=== PATIENT | female | born 1995 | race African-American/Black ===

== ENCOUNTER 2018-10-03 21:03 | Emergency (ER) | payer SELFPAY ==
[~2018-10-03] VITALS: Ht 162.6 cm; Wt 106.6 kg
--- OUTSIDE RECORDS SUMMARY | 2018-10-03 21:09 | XMS REPORT ---
Author Author RONI GALEAS Organization [facility] Address [address] [place] [address] Care Team Providers Care Leather Coater Name Role Phone RONI GALEAS Unavailable PROBLEMS Type Condition ICD9-CM Code LIE55-HG Code Onset Dates Condition Status SNOMED Code Problem Morbid obesity E66.01 Active 711742786 Problem Mild intermittent asthma with exacerbation J45.21 Active 276511544 ALLERGIES No Information ENCOUNTERS Encounter Location Date Diagnosis [place] [id number] [place] [address] [phone]- [phone] Sep, [facility] [address] [phone] Sep, [facility] [id number] [place] [address]4314- 2833 Sep, [facility] [address] [address] Sep, Exercise counseling Z71.82 [facility] [id number] [place] [address] 69736- 5561 Sep, Exercise counseling Z71.82 [facility] [id number] [place] [address] 66765- [phone] 16 Sep, 2018 Exercise counseling Z71.82 [facility] [id number] [place] [address] 84909- 9044 Sep, Exercise counseling Z71.82 [place] [id number] [place] [address] 55691- 9579 Sep, Exercise counseling Z71.82 [facility] [id number] [place] [address] 06044- 9369 23 Oct, 2018 Mild intermittent asthma with exacerbation J45.21 ; Morbid obesity E66.01 and BMI 45.0-49.9, adult Z68.42 IMMUNIZATIONS No Known Immunizations SOCIAL HISTORY Never Assessed REASON FOR VISIT weight loss PLAN OF CARE Activity Details Follow Up 1 Week Reason: VITAL SIGNS MEDICATIONS Unknown Medications RESULTS No Results PROCEDURES No Known procedures INSTRUCTIONS MEDICATIONS ADMINISTERED No Known Medications MEDICAL (GENERAL) HISTORY Type Description Date Medical History asthma Surgical History No Surgical history information
--- OUTSIDE RECORDS SUMMARY | 2018-10-03 21:09 | XMS REPORT ---
Author Author RONI GALEAS Organization [facility] Address [address] [place] [address] Care Team Providers Care Flight Simulator Teacher Name Role Phone RONI GALEAS Unavailable PROBLEMS Type Condition ICD9-CM Code LXC45-DR Code Onset Dates Condition Status SNOMED Code Problem Morbid obesity E66.01 Active 111577521 Problem Mild intermittent asthma with exacerbation J45.21 Active 967893475 ALLERGIES No Information ENCOUNTERS Encounter Location Date Diagnosis [place] [id number] [place] [phone]- [phone] Sep, [place] [address] [place] [id number] [place] [address] 95085- [phone] 16 Sep, 2018 [place] [id number] [place] [address] 48538- [phone] Sep, [place] [address] [id number] [place] [address] 63696- 1479 Sep, Exercise counseling Z71.82 [place] [address] [place] [address] 15009- 9152 Sep, Exercise counseling Z71.82 [place] [address] [place] [address] [phone]- 9697 Aug, Mild intermittent asthma with exacerbation J45.21 ; [...]
--- OUTSIDE RECORDS SUMMARY | 2018-10-03 21:09 | XMS REPORT ---
Author Author RONI GALEAS Organization [facility] Address [address] [place] [address] Care Team Providers Care Cable Wirer Name Role Phone RONI GALEAS Unavailable PROBLEMS Type Condition ICD9-CM Code ZZV27-YJ Code Onset Dates Condition Status SNOMED Code Problem Morbid obesity E66.01 Active 302469185 Problem Mild intermittent asthma with exacerbation J45.21 Active 806077252 ALLERGIES No Known Allergies ENCOUNTERS Encounter Location Date Diagnosis [facility] [id number] [address] Aug, [facility] [address] [place] [address] 63984- 2423 Aug, Mild intermittent asthma with exacerbation J45.21 ; Morbid obesity E66.01 and BMI 45.0-49.9, adult Z68.42 IMMUNIZATIONS No Known Immunizations SOCIAL HISTORY Never Assessed REASON FOR VISIT cough/congestion x1week with production with thick brown KPage MA , short of breath at rest and when active KPage mA 94% on room air KPage MA PLAN OF CARE Activity Details Follow Up prn Reason: VITAL SIGNS Height 5'4 in 2018-08-25 Weight 234 lbs 2018-08-25 Temperature 98.1 degrees Fahrenheit 2018-08-25 Heart Rate 75 bpm 2018-08-25 Respiratory Rate 20 2018-08-25 BMI 45.70 kg/m2 2018-08-25 Blood pressure systolic 118 mmHg 2018-08-25 Blood pressure diastolic 74 mmHg 2018-08-25 MEDICATIONS Medication Instructions Dosage Frequency Start Date End Date Duration Status PredniSONE 20 mg Orally Once a day 2 tablets 24h Aug, Aug, 5 days Active Promethazine-Codeine 6.25-10 MG/5ML Orally 4every 6 hrs 10 ml as needed Aug, Active RESULTS No Results PROCEDURES No Known procedures INSTRUCTIONS MEDICATIONS ADMINISTERED No Known Medications MEDICAL (GENERAL) HISTORY Type Description Date Medical History asthma Surgical History No Surgical history information
--- OUTSIDE RECORDS SUMMARY | 2018-10-03 21:09 | XMS REPORT ---
Author Author YULIET LAMB [facility] Address [address] [place] [address] Care Team Providers Care Chassis Mechanic Name Role Phone YULIET LAMB Unavailable PROBLEMS Type Condition ICD9-CM Code HWD17-DB Code Onset Dates Condition Status SNOMED Code Problem Morbid obesity E66.01 Active 104414031 Problem Mild intermittent asthma with exacerbation J45.21 Active 468530809 ALLERGIES No Known Allergies ENCOUNTERS Encounter Location Date Diagnosis [place] [id number] [place] [address] 11203- [phone] 30 Sep, 2018 [place] [id number] [place] [address] 90366- 2638 Sep, [place] [id number] [place] [address] 51334- 6985 23 Sep, 2018 Well woman exam Z01.419 ; Screening for cervical cancer Z12.4 ; Screening examination for sexually transmitted disease Z11.3 ; Encounter for immunization Z23 and BMI 45.0-49.9, adult Z68.42 [place] [id number] [place] [address] 08108- 5395 Sep, Exercise counseling Z71.82 [place] [id number] [place] [address] 77215- 6969 Sep, Exercise counseling Z71.82 [place] [id number] [place] [address] 50594- 3555 16 Sep, 2018 Exercise counseling Z71.82 [place] [id number] [place] [address] 41178- [phone] 09 Sep, 2018 Exercise counseling Z71.82 [place] [id number] [place] [address] 41325- 2186 Sep, Exercise counseling Z71.82 [facility] [address] [facility] [id number] [place] [address] Aug, Mild intermittent asthma with exacerbation J45.21 ; Morbid obesity E66.01 and BMI 45.0-49.9, adult Z68.42 IMMUNIZATIONS Vaccine Route Administration Date Status GARDASIL 9 IM Intramuscular Sep 25, 2018 Administered SOCIAL HISTORY Never Assessed REASON FOR VISIT Well Woman Exam Trevon Swartz PLAN OF CARE Activity Details Follow Up 1 Year Reason:WWE Pending Test GC/CHLAM PROBE (STATE) Pending Test PAP REFLEX TO HPV IF ASCUS VITAL SIGNS Height 5'4 in 2018-09-25 Weight 235.2 lbs 2018-09-25 Temperature 98.2 degrees Fahrenheit 2018-09-25 Heart Rate 71 bpm 2018-09-25 Respiratory Rate 20 2018-09-25 BMI 45.93 kg/m2 2018-09-25 Blood pressure systolic 124 mmHg 2018-09-25 Blood pressure diastolic 82 mmHg 2018-09-25 MEDICATIONS Unknown Medications RESULTS Name Result Date Reference Range TEST, URINE (IN HOUSE) 2018-09-25 RESULTS negative Lot # [id number] Control + Exp date 03/22 TRICHOMONAS (IN HOUSE) 2018-09-25 TRICHOMONAS negative Control + Lot # [id number] Exp date 09/2019 PROCEDURES Procedure Date Ordered Result Body Site URINE TEST Sep 25, 2018 SPECIMEN HANDLING Sep 25, 2018 TRICHOMONAS ASSAY W/OPTIC Sep 25, 2018 No Charge Sep 25, 2018 SINGLE IMMUNIZATION ADMIN Sep 25, 2018 GARDISIL 9 Sep 25, 2018 INSTRUCTIONS MEDICATIONS ADMINISTERED No Known Medications MEDICAL (GENERAL) HISTORY Type Description Date Medical History asthma Surgical History No Surgical history information
--- OUTSIDE RECORDS SUMMARY | 2018-10-03 21:09 | XMS REPORT ---
Author Author RONI GALEAS Organization [facility] Address [address] [place] [address] Care Team Providers Care Iron Assorter Name Role Phone RONI GALEAS Unavailable PROBLEMS Type Condition ICD9-CM Code WFP90-CK Code Onset Dates Condition Status SNOMED Code Problem Morbid obesity E66.01 Active 444776081 Problem Mild intermittent asthma with exacerbation J45.21 Active 482571198 ALLERGIES No Information ENCOUNTERS Encounter Location Date Diagnosis [place] [address] [place] [address] [phone]- [phone] Sep, [place] [id number] [place] [address] 81884- [phone] Sep, [facility] [address] [place] [address] 23394- 8166 Sep, Exercise counseling Z71.82 [place] [id number] [place] [address] 44699- [phone] Aug, Mild intermittent asthma with exacerbation J45.21 ; Morbid obesity E66.01 and BMI 45.0-49.9, adult Z68.42 IMMUNIZATIONS No Known Immunizations SOCIAL HISTORY Never Assessed REASON FOR VISIT weight loss program PLAN OF CARE Activity Details Follow Up 2 - 3 Days Reason: VITAL SIGNS MEDICATIONS Unknown Medications RESULTS No Results PROCEDURES No Known procedures INSTRUCTIONS MEDICATIONS ADMINISTERED No Known Medications MEDICAL (GENERAL) HISTORY Type Description Date Medical History asthma Surgical History No Surgical history information
[2018-10-03] MEDS ORDERED: LACTATED RINGERS 1,000 ML IV ONE (22:37)
[2018-10-03 22:42] LABS: BASOPHILS # (AUTO) 0.1 10^3/uL (0.0-0.1); BASOPHILS % (AUTO) 1 % (0-10); EOSINOPHILS # (AUTO) 0.2 10^3/uL (0.0-0.3); EOSINOPHILS % (AUTO) 2 % (0-10); HEMATOCRIT 36 % (35-52); HEMOGLOBIN 12.3 G/DL (11.5-16.0); LYMPHOCYTES % (AUTO) 20 % (12-44); MEAN CORPUSCULAR HEMOGLOBIN 28 PG (25-34); MEAN CORPUSCULAR HGB CONC 34 G/DL (32-36); MEAN CORPUSCULAR VOLUME 81 FL (80-99); MEAN PLATELET VOLUME 11.1 FL (7.4-10.4); MONOCYTES # (AUTO) 0.7 X 10^3 (0.0-1.0); MONOCYTES % (AUTO) 7 % (0-12); NEUTROPHILS # (AUTO) 7.2 X 10^3 (1.8-7.8); NEUTROPHILS % (AUTO) 71 % (42-75); PLATELET COUNT 210 10^3/uL (130-400); RED BLOOD COUNT 4.46 10^6/uL (4.35-5.85); RED CELL DISTRIBUTION WIDTH 12.8 % (10.0-14.5); WHITE BLOOD COUNT 10.1 10^3/uL (4.3-11.0)
[2018-10-03 23:01] LABS: ALANINE AMINOTRANSFERASE 20 U/L (0-55); ALBUMIN 4.1 GM/DL (3.2-4.5); ALKALINE PHOSPHATASE 78 U/L (40-136); AMYLASE 54 U/L (25-125); BILIRUBIN,TOTAL 0.4 MG/DL (0.1-1.0); BUN/CREATININE RATIO 10; CALCIUM 9.3 MG/DL (8.5-10.1); CARBON DIOXIDE 23 MMOL/L (21-32); CHLORIDE 104 MMOL/L (98-107); CREATININE SERUM 0.72 MG/DL (0.60-1.30); GFR ESTIMATED > 60; GLUCOSE 100 MG/DL (70-105); LIPASE 22 U/L (8-78); POTASSIUM 3.8 MMOL/L (3.6-5.0); SODIUM 138 MMOL/L (135-145); TOTAL PROTEIN 7.4 GM/DL (6.4-8.2)
[2018-10-03 23:15] LABS: BILIRUBIN,URINE NEGATIVE (NEGATIVE); CLARITY,URINE CLEAR; COLOR,URINE YELLOW; GLUCOSE, URINE (UA) NEGATIVE (NEGATIVE); KETONES,URINE 1+ (NEGATIVE); LEUKOCYTE ESTERASE ,URINE NEGATIVE (NEGATIVE); NITRITE,URINE NEGATIVE (NEGATIVE); PH,URINE 6.5 (5-9); PROTEIN,URINE NEGATIVE (NEGATIVE); UROBILINOGEN,URINE NORMAL (NORMAL)
[2018-10-03] MEDS ORDERED: NS 250 ML (IVPB) BAG IV ONE (23:15)
[2018-10-03] MEDS ORDERED: IOHEXOL 350 MG/ML 100 ML (OMNIPAQUE 350) VIAL IV ONE (23:15)
[2018-10-03] MEDS ORDERED: RECEIVED CONTRAST (Hold Metformin) IV SCH (23:15)
[2018-10-03 23:22] LABS: BACTERIA,URINE TRACE /HPF; RBC,URINE RARE /HPF; WBC,URINE RARE /HPF
[2018-10-03] MEDS ORDERED: RX-HYOSCYAMINE 0.125 MG SL (LEVSIN) PPK#6 SL STA (23:39)
[2018-10-03] MEDS ORDERED: RX-ONDANSETRON 4 MG ODT (ZOFRAN) PPK #4 PO STA (23:39)
[2018-10-03] MEDS ORDERED: HYOS0.1283 SL (23:45)
[2018-10-03] MEDS ORDERED: PANT40TA2 PO (23:45)
[2018-10-03] MEDS ORDERED: ONDN4T PO (23:45)
--- NOTE | 2018-10-03 23:45 | ED GI ---
General Chief Complaint: Abdominal/GI Problems Stated Complaint: ABD PAIN Nursing Triage Note: nausea and vomiting for the last three days with abdominal pain Sepsis Screen: No Definite Risk Source of Information: Patient Exam Limitations: No Limitations History of Present Illness Date Seen by Provider: Oct 03, 2018 Time Seen by Provider: 22:25 Initial Comments PT ARRIVES VIA POV FROM HOME C/O ABDOMINAL PAIN X 3 DAYS PAIN COMES AND GOES AND MOVES AROUND ALL OVER ABDOMEN. PAIN IS IN RUQ AND SUPRAPUBIC AREA NOW. PAIN IS WORSE WITH EATING BUT HAS CONTINUED TO EAT NORMALLY + NAUSEA AND VOMITING--VOMITED X 2 YESTERDAY AND NO VOMITING TODAY + DIARRHEA--HAD 3-4 STOOLS YESTERDAY AND NONE TODAY. NO BLACK/BLOODY/TARRY STOOLS NO FEVER NO URINARY SYMPTOMS OTHER THAN MILD URGENCY, WHICH IS NORMAL FOR PT AT TIMES. NO HISTORY OF SIMILAR NO KNOWN SICK CONTACTS WITH SAME. LMP 2 WEEKS AGO, NORMAL. NO CONTROL PCP: [facility]. Allergies and Home Medications Allergies Coded Allergies: No Known Drug Allergies (Unverified , 10/03/18) Home Medications Hyoscyamine Sulfate 0.125 Mg Tab.subl, 1-2 TAB SL Q4H Prescribed by: MACO WALLACE on 10/03/18 2345 Ondansetron HCl 4 Mg Tab, 4 MG PO Q4H Prescribed by: MACO WALLACE on 10/03/18 2345 Pantoprazole Sodium 40 Mg Tablet.dr, 40 MG PO DAILY Prescribed by: MACO WALLACE on 10/03/18 2345 Patient Home Medication List Home Medication List Reviewed: Yes Review of Systems Review of Systems Constitutional: no symptoms reported Respiratory: No Symptoms Reported Cardiovascular: No Symptoms Reported Gastrointestinal: See HPI, Abdominal Pain, Diarrhea, Nausea; Denies Poor Appetite, Denies Poor Fluid Intake; Vomiting Genitourinary: See HPI; Denies Burning; Urgency Musculoskeletal: no symptoms reported Skin: no symptoms reported Psychiatric/Neurological: No Symptoms Reported Endocrine: No Symptoms Reported Hematologic/Lymphatic: No Symptoms Reported Past Dodbvxy-Ehkrto-Wltzph Hx Patient Social History Alcohol Use: Occasionally Uses Alcohol Beverage of Choice: Beer Recreational Drug Use: No Smoking Status: Never a Smoker 2nd Hand Smoke Exposure: No Recent Foreign Travel: No Contact w/Someone Who Travel: Yes Recent Infectious Disease Expo: No Recent Hopitalizations: No Immunizations Up To Date PED Vaccines UTD: Yes Seasonal Allergies Seasonal Allergies: No Past Medical History Surgeries: Yes Tonsillectomy Respiratory: No Cardiac: No Neurological: No : No (tested at OBGYN office last week.) Reproductive Disorders: No Genitourinary: No Gastrointestinal: No Musculoskeletal: No Endocrine: No HEENT: No Cancer: No Psychosocial: No Integumentary: No Blood Disorders: No Physical Exam Vital Signs Vital Signs - First Documented 10/03/18 22:17 Temp 97.7 Pulse 63 Resp 20 B/P (MAP) 191/125 (147) Pulse Ox 99 O2 Delivery Room Air Capillary Refill : Less Than 3 Seconds Height/Weight/BMI Height: 5'4.00" Weight: 235lbs. oz. 106.554846ea; BMI Method:Stated General Appearance: WD/WN, no apparent distress, other (SMILING, WALKS UPRIGHT AND MOVES WITHOUT DIFFICULTY, SITTING -STYLE, THEN LAYS STRAIGHT BACK WITH LEGS KEPT -STYLE WITHOUT ANY DIFFICULTY WHATSOEVER. DOES NOT APPEAR TO BE IN ANY DISCOMFORT OR DISTRESS. ) HEENT: PERRL/EOMI, normal ENT inspection Neck: normal inspection Respiratory: normal breath sounds, no respiratory distress, no accessory muscle use Cardiovascular: regular rate, rhythm, no murmur Gastrointestinal: normal bowel sounds, soft, no organomegaly, no pulsatile mass ; No distended, No guarding, No rebound; tenderness (MILD RUQ AND SUPRAPUBIC TENDERNESS. ); No hernia, No mass Extremities: normal inspection, normal capillary refill Back: normal inspection, no CVA tenderness Neurologic/Psychiatric: oil burner technician II-XII nml as tested, no motor/sensory deficits, alert, normal mood/affect, oriented x 3 Skin: normal color, warm/dry, tattoos/piercings (TATTOOS) Progress/Results/Core Measures Results/Orders Lab Results Laboratory Tests Test 10/03/18 22:34 10/03/18 23:06 Range/Units White Blood Count 10.1 4.3-11.0 10^3/uL Red Blood Count 4.46 4.35-5.85 10^6/uL Hemoglobin 12.3 11.5-16.0 G/DL Hematocrit 36 35-52 % Mean Corpuscular Volume 81 80-99 FL Mean Corpuscular Hemoglobin 28 25-34 PG Mean Corpuscular Hemoglobin Concent 34 32-36 G/DL Red Cell Distribution Width 12.8 10.0-14.5 % Platelet Count 210 130-400 10^3/uL Mean Platelet Volume 11.1 H 7.4-10.4 FL Neutrophils (%) (Auto) 71 42-75 % Lymphocytes (%) (Auto) 20 12-44 % Monocytes (%) (Auto) 7 0-12 % Eosinophils (%) (Auto) 2 0-10 % Basophils (%) (Auto) 1 0-10 % Neutrophils # (Auto) 7.2 1.8-7.8 X 10^3 Lymphocytes # (Auto) 2.0 1.0-4.0 X 10^3 Monocytes # (Auto) 0.7 0.0-1.0 X 10^3 Eosinophils # (Auto) 0.2 0.0-0.3 10^3/uL Basophils # (Auto) 0.1 0.0-0.1 10^3/uL Sodium Level 138 135-145 MMOL/L Potassium Level 3.8 3.6-5.0 MMOL/L Chloride Level 104 98-107 MMOL/L Carbon Dioxide Level 23 21-32 MMOL/L Anion Gap 11 5-14 MMOL/L Blood Urea Nitrogen 7 7-18 MG/DL Creatinine 0.72 0.60-1.30 MG/DL Estimat Glomerular Filtration Rate > 60 BUN/Creatinine Ratio 10 Glucose Level 100 70-105 MG/DL Calcium Level 9.3 8.5-10.1 MG/DL Corrected Calcium 9.2 8.5-10.1 MG/DL Total Bilirubin 0.4 0.1-1.0 MG/DL Aspartate Amino Transf (AST/SGOT) 18 5-34 U/L Alanine Aminotransferase (ALT/SGPT) 20 0-55 U/L Alkaline Phosphatase 78 40-136 U/L Total Protein 7.4 6.4-8.2 GM/DL Albumin 4.1 3.2-4.5 GM/DL Amylase Level 54 25-125 U/L Lipase 22 8-78 U/L Serum Test, Qualitative NEGATIVE NEGATIVE Urine Color YELLOW Urine Clarity CLEAR Urine pH 6.5 5-9 Urine Specific [place] 1.005 L 1.016-1.022 Urine Protein NEGATIVE NEGATIVE Urine Glucose (UA) NEGATIVE NEGATIVE Urine Ketones 1+ H NEGATIVE Urine Nitrite NEGATIVE NEGATIVE Urine Bilirubin NEGATIVE NEGATIVE Urine Urobilinogen NORMAL NORMAL MG/DL Urine Leukocyte Esterase NEGATIVE NEGATIVE Urine RBC (Auto) NEGATIVE NEGATIVE Urine RBC RARE /HPF Urine WBC RARE /HPF Urine Squamous Epithelial Cells 2-5 /HPF Urine Crystals NONE /LPF Urine Bacteria TRACE /HPF Urine Casts NONE /LPF Urine Mucus NEGATIVE /LPF Urine Culture Indicated NO My Orders Orders - MACO WALLACE DO Saline Lock/Iv-Start (10/03/18 22:26) Amylase (10/03/18 22:26) Cbc With Automated Diff (10/03/18 22:26) Comprehensive Metabolic Panel (10/03/18 22:26) Hcg,Qualitative Serum (10/03/18 22:26) Lipase (10/03/18 22:26) Ua Culture If Indicated (10/03/18 22:26) Saline Lock/Iv-Start (10/03/18 22:37) Lactated Ringers (Lr 1000 Ml Iv Solution (10/03/18 22:37) Ct Abdomen/Pelvis W (10/03/18 23:02) Iohexol Injection (Omnipaque 350 Mg/Ml 1 (10/03/18 23:15) Contrast Received (Contrast Received) (10/03/18 23:15) Ns (Ivpb) (Sodium Chloride 0.9%) (10/03/18 23:15) Rx-Ondansetron Po (Rx-Zofran Po) (10/03/18 23:39) Rx-Hyoscyamine Tab (Rx-Levsin Sl) (10/03/18 23:39) Clonidine Tablet (Catapres Tablet) (10/04/18 00:45) Medications Given in ED Current Medications Medications Dose Ordered Sig/Fercho Route Start Time Stop Time Status Last Admin Dose Admin Clonidine HCl 0.2 mg ONCE ONCE PO 10/04/18 00:45 10/04/18 00:46 DC 10/04/18 00:46 0.2 MG Iohexol 100 ml ONCE ONCE IV 10/03/18 23:15 10/03/18 23:16 DC 10/03/18 23:20 100 ML Lactated Ringer's 1,000 ml @ 0 mls/hr Q0M ONCE IV 10/03/18 22:37 12 22:39 DC 10/03/18 23:40 0 MLS/HR Sodium Chloride 250 ml ONCE ONCE IV 10/03/18 23:15 10/03/18 23:16 DC 10/03/18 23:20 80 ML Vital Signs/I&O 10/03/18 10/04/18 22:17 01:18 Temp 97.7 97.7 Pulse 63 56 Resp 20 18 B/P (MAP) 191/125 (147) 157/100 (119) Pulse Ox 99 99 O2 Delivery Room Air Room Air Blood Pressure Mean: 147 Progress Progress Note : Progress Note PT WAS BEING DISMISSED, BP NOTED TO BE 193/130. PT STATES BP IS NOT NORMALLY HIGH AND HAS NEVER BEEN TOLD THAT SHE HAS HTN AND NEVER BEEN ON BP MEDICATIONS GIVEN CLONIDINE 0.2 MG, BP DOWN TO 157/100 --PT NOW STATES THAT THIS IS NORMAL FOR HER. ADVISED THAT SHE SHOULD FOLLOW UP WITH PCP FOR FURTHER EVALUATION OF THIS PROBLEM. UNEVENTFUL ER STAY OTHERWISE. Diagnostic Imaging Comments CT ABDOMEN/PELVIS--NO ACUTE PROCESS, PER [facility] VIA FAX @ [phone] Reviewed: Reviewed by Me Departure Impression Primary Impression: ABDOMINAL PAIN Additional Impression: HTN (hypertension) Disposition: 01 HOME, SELF-CARE Condition: Improved Departure-Patient Inst. Referrals: [facility] (PCP/Family) Primary Care Physician Patient Instructions: Acute Abdomen (Belly Pain), Adult (DC), DASH Diet, High Blood Pressure (DC) Add. Discharge Instructions: CLEAR LIQUIDS--WATER, BROTH, JELLO, GATORADE TOMORROW IF YOU ARE BETTER, ADD BRATS DIET TO CLEAR LIQUIDS FOLLOW UP WITH YOUR DR IN 2-3 DAYS FOR FURTHER CARE All discharge instructions reviewed with patient and/or family. Voiced understanding. Scripts Ondansetron HCl (Zofran) 4 Mg Tab 4 MG PO Q4H for Nausea/Vomiting, #10 TAB Prov: MADISON,MACO K DO 10/03/18 Pantoprazole Sodium (Protonix) 40 Mg Tablet.dr 40 MG PO DAILY, #15 TAB Prov: ELMA WALLACEA K DO 10/03/18 Hyoscyamine Sulfate (Levsin-Sl) 0.125 Mg Tab.subl 1-2 TAB SL Q4H for Abdominal Pain, #10 TAB Prov: ELMA WALLACEA K DO 10/03/18 MACO WALLACE DO Oct 03, 2018 23:45
[2018-10-04] MEDS ORDERED: cloNIDine 0.2 MG (CATAPRES) TAB PO ONE (00:45)
[2018-10-04 01:18] VITALS: BP 157/100
--- NOTE | 2018-10-04 07:09 | Diagnostic Imaging Report ---
PROCEDURE: CT abdomen and pelvis with contrast. TECHNIQUE: Multiple contiguous axial images were obtained through the abdomen and pelvis after administration of intravenous contrast. INDICATION: Nausea and vomiting 3 days history. FINDINGS: There is a right ovarian cyst measuring 3.5 cm. The appendix is visualized and is normal. The liver, spleen, adrenals, pancreas, gallbladder and bile ducts unremarkable. The kidneys are unobstructed and nonacute. There is no bowel obstruction. There is no ascites, abscess, hematoma or fluid collection. The uterus is retroflexed but appears otherwise normal. No pneumatosis or free gas. Lung bases and osseous structures nonacute. IMPRESSION: Unobstructed urinary tracts. Normal appendix. Right ovarian cyst otherwise negative. Dictated by: Dictated on workstation # [id number]
== END 2018-10-04 01:18 | disposition home or self-care (01) ==
LOC: ER 21:05
DX: R10.11 Right upper quadrant pain (principal); I10 Essential (primary) hypertension; Z90.89 Acquired absence of other organs
CPT/HCPCS: 36415; 74177; 80053; 81000; 82150; 83690; 84703; 85025; 96360